=== PATIENT | female | born 1945 | race African-American/Black ===

== ENCOUNTER → 2018-04-03 | Outpatient (CLI) | payer MEDICARE, BC | END | disposition home or self-care (01) | LOC: NM 09:21 | PROVIDERS: ATTEND Internal Medicine | DX: E07.9 Disorder of thyroid, unspecified (principal) | CPT/HCPCS: 78014; A9516 ==

== ENCOUNTER 2020-09-13 20:31 | Inpatient (IN) | payer BC, MEDICARE ==
[~2020-09-13] VITALS: Ht 165.1 cm; Wt 74.4 kg
[2020-09-13 21:17] LABS: BASOPHILS % 0.7 % (0.0-2.0); EOSINOPHILS % 0.7 % (0.0-5.0); HEMATOCRIT. 38.9 % (36.0-48.0); HEMOGLOBIN. 12.7 g/dL (12.0-16.0); LYMPHOCYTES % 27.5 % (20.0-50.0); MEAN CORPUSCULAR HEMOGLOBIN 28.4 pg (28.0-32.0); MEAN CORPUSCULAR VOLUME 87.3 fL (81.0-99.0); MONOCYTES % 6.7 % (2.0-8.0); NEUTROPHILS % 64.4 % (40.0-76.0); RED BLOOD CELL COUNT 4.46 mill/uL (4.2-5.4); RED CELL DISTRIBUTION WIDTH 13.8 % (11.6-14.6)
[2020-09-13 21:22] LABS: CHLORIDE 101 mEq/L (98-107)
[2020-09-13 22:00] LABS: MEAN PLATELET VOLUME 9.5 fl (7.4-10.4)
[2020-09-13 22:01] LABS: PLATELET 156 x1000/uL (130-400)
[2020-09-14 05:43] VITALS: BP 145/76
[2020-09-14] MEDS ORDERED: AMLO5TAB88 PO (06:08)
[2020-09-14] MEDS ORDERED: AZIL40TA PO (06:09)
[2020-09-14] MEDS ORDERED: METF-874 PO (06:10)
[2020-09-14] MEDS ORDERED: DEXTROSE 50% WATER 50ML SYRINGE IV PRN (06:45)
[2020-09-14] MEDS: BLOOD SUGAR DIAGNOSTIC STRIP TEST SCH ×4 (07:43→21:07)
[2020-09-14 08:00] VITALS: BP 122/63
[2020-09-14] MEDS: INSULIN LISPRO 100 UNITS/ML SUBCUT SCH ×4 (08:08→21:07)
[2020-09-14 09:04] LABS: CHLORIDE 103 mEq/L (98-107)
[2020-09-14 09:11] LABS: CREATINE KINASE 140 IU/L (26-192)
[2020-09-14 09:13] LABS: CREATINE KINASE MB FRACTION < 1.0 ng/mL (0.5-3.6); LDL CHOLESTEROL 103 mg/dL (5-100)
[2020-09-14 09:15] LABS: HDL CHOLESTEROL 94 mg/dL (40-59)
[2020-09-14 09:30] LABS: BASOPHILS % 0.5 % (0.0-2.0); EOSINOPHILS % 0.8 % (0.0-5.0); HEMOGLOBIN. 12.9 g/dL (12.0-16.0); LYMPHOCYTES % 35.8 % (20.0-50.0); MEAN CORPUSCULAR HEMOGLOBIN 28.4 pg (28.0-32.0); MONOCYTES % 6.1 % (2.0-8.0); NEUTROPHILS % 56.8 % (40.0-76.0); PLATELET 178 x1000/uL (130-400); RED BLOOD CELL COUNT 4.53 mill/uL (4.2-5.4)
[2020-09-14 12:00] VITALS: BP 133/70
[2020-09-14] MEDS ORDERED: AMLODIPINE 5MG TABLET PO SCH (14:15)
[2020-09-14] MEDS ORDERED: CLONIDINE 0.1MG TABLET PO PRN (14:30)
[2020-09-14] MEDS ORDERED: HYDROCODONE/ACETAMINOPHEN 5/325MG TABLET PO PRN (14:30)
[2020-09-14] MEDS ORDERED: ACETAMINOPHEN 325MG TABLET PO PRN ×2 (14:30)
[2020-09-14] MEDS ORDERED: ONDANSETRON HCL 4MG/2ML INJ IV PRN (14:30)
[2020-09-14] MEDS ORDERED: LORAZEPAM 0.5MG TABLET PO PRN (14:30)
[2020-09-14] MEDS ORDERED: IPRATROPIUM/ALBUTEROL 0.5-3(2.5)MG/3ML NEB HHN PRN (14:30)
[2020-09-14] MEDS ORDERED: DOCUSATE SODIUM 100MG CAPSULE PO PRN (14:30)
[2020-09-14] MEDS: ASPIRIN 81MG EC TABLET PO SCH (15:08)
[2020-09-14 16:00] VITALS: BP_SYST 120; BP_SYST 132; BP_SYST 137; BP_DIAS 69; BP_DIAS 70; BP_DIAS 74
[2020-09-14 18:31] LABS: *AMPHETAMINES SCREEN URINE NEGATIVE (NEGATIVE); *BARBITURATES SCREEN URINE NEGATIVE (NEGATIVE); *BENZODIAZEPINES SCREEN URINE NEGATIVE (NEGATIVE); CANNABINOID URINE SCREEN NEGATIVE (NEGATIVE); OPIATES URINE SCREEN NEGATIVE (NEGATIVE); PHENCYCLIDINE URINE SCREEN NEGATIVE (NEGATIVE)
[2020-09-14 18:32] LABS: *COCAINE SCREEN URINE NEGATIVE (NEGATIVE); METHADONE URINE SCREEN NEGATIVE (NEGATIVE)
[2020-09-14 20:00] VITALS: BP_SYST 123; BP_SYST 124; BP_SYST 129; BP_DIAS 58; BP_DIAS 65; BP_DIAS 69
[2020-09-14] MEDS ORDERED: ATORVASTATIN CALCIUM 20MG TABLET PO SCH (21:00)
[2020-09-15] VITALS: BP 114/60
[2020-09-15 04:00] VITALS: BP 132/72
[2020-09-15] MEDS: BLOOD SUGAR DIAGNOSTIC STRIP TEST SCH ×2 (06:31→12:49)
[2020-09-15 08:00] VITALS: BP_SYST 123; BP_SYST 124; BP_SYST 136; BP_DIAS 64; BP_DIAS 77; BP_DIAS 82
[2020-09-15] MEDS ORDERED: AMLODIPINE 2.5MG TABLET PO SCH (09:00)
[2020-09-15] MEDS: ASPIRIN 81MG EC TABLET PO SCH (09:43)
[2020-09-15] MEDS: INSULIN LISPRO 100 UNITS/ML SUBCUT SCH ×2 (09:45→13:15)
[2020-09-15 10:34] LABS: BASOPHILS % 0.6 % (0.0-2.0); EOSINOPHILS % 1.3 % (0.0-5.0); HEMATOCRIT. 40.8 % (36.0-48.0); HEMOGLOBIN. 13.5 g/dL (12.0-16.0); LYMPHOCYTES % 34.9 % (20.0-50.0); MEAN CORPUSCULAR HEMOGLOBIN 28.7 pg (28.0-32.0); MEAN CORPUSCULAR VOLUME 86.6 fL (81.0-99.0); MONOCYTES % 6.2 % (2.0-8.0); PLATELET 183 x1000/uL (130-400); RED CELL DISTRIBUTION WIDTH 13.9 % (11.6-14.6)
[2020-09-15 10:54] LABS: CHLORIDE 100 mEq/L (98-107)
[2020-09-15 11:09] VITALS: BP 140/68
[2020-09-15] MEDS ORDERED: METF-874 PO (11:25)
[2020-09-15] MEDS ORDERED: ASPI-1406 PO (11:25)
[2020-09-15] MEDS ORDERED: SITA50TA3 MT (11:25)
[2020-09-15] MEDS ORDERED: ATOR20TA PO (11:25)
[2020-09-15 16:00] VITALS: BP 140/77
[2020-09-15 16:19] VITALS: BP 140/77
== END 2020-09-15 17:25 | disposition home or self-care (01) | DRG 48 ==
LOC: ER 20:31 → 6WST 23:44 → EDBEDREQTM 09-14 00:05 → EDBEDREQ 09-14 00:05 → EDBEDREQDT 09-14 00:05 → ENRESERV 09-14 03:30
PROVIDERS: ADMIT Internal Medicine; ATTEND Internal Medicine
DX: G90.8 Other disorders of autonomic nervous system (principal); E11.65 Type 2 diabetes mellitus with hyperglycemia; E87.5 Hyperkalemia; E78.5 Hyperlipidemia, unspecified; F12.90 Cannabis use, unspecified, uncomplicated; I10 Essential (primary) hypertension; I25.10 Atherosclerotic heart disease of native coronary artery without angina pectoris; I25.2 Old myocardial infarction; Z79.4 Long term (current) use of insulin; Z86.73 Personal history of transient ischemic attack (TIA), and cerebral infarction without residual deficits; Z87.891 Personal history of nicotine dependence
CPT/HCPCS: 36415; 70551; 71045; 80048; 80053; 80061; 80305; 82550; 82553; 82962; 83036; 83735; 83880; 84484; 85025; 85379; 93005; 93306; 93880; 99285; J1815